=== PATIENT | male | born 1980 | race Caucasian/White ===

== ENCOUNTER 2018-02-17 14:35 | Emergency (ER) | payer OTHER ==
[~2018-02-17] VITALS: Ht 193 cm; Wt 97.5 kg
[2018-02-17] MEDS ORDERED: FLUORESCEIN SODIUM OPHTH 1 EA STRIP OP STA (14:58)
[2018-02-17] MEDS ORDERED: TETRAcaine 5 ML BOTTLE EACHEYE ONE (15:00)
[2018-02-17] MEDS ORDERED: TETRACAINE HCL/PF 0.5% UD 2 ML BOTTLE ONE (15:16)
[2018-02-17] MEDS ORDERED: FLUORESCEIN SODIUM OPHTH 1 EA STRIP ONE (15:16)
--- NOTE | 2018-02-17 15:17 | NUR ---
PT REC'D TO ER C/O LEFT EYE SWELLING . PT TOOK WEED COOKIE AND FELL CANT REMEMBER IF KO. SENT TO CT
--- NOTE | 2018-02-17 15:47 | NUR ---
PT BACK FROM CT VISION CK DONE TETRACAINE APPLIED TO LEFT EYE
--- NOTE | 2018-02-17 15:52 | NUR ---
RT EYE 20/20, LEFT EYE 20/25 OU 20/20
[2018-02-17] MEDS ORDERED: AMOX/CLAVULANATE 875 MG TABLET ONE (17:00)
[2018-02-17] MEDS ORDERED: AMOX/CLAVULANATE 875 MG TABLET PO ONE (17:00)
--- NOTE | 2018-02-17 17:07 | NUR ---
PT GIVEN MED AUGMENTIN PO PER MD
[2018-02-17 17:18] VITALS: BP 109/72
--- NOTE | 2018-02-17 17:18 | NUR ---
Patient discharged to home in stable condition. Written and verbal after care instructions given. Patient verbalizes understanding of instruction.
== END 2018-02-17 17:20 | disposition home or self-care (01) ==
LOC: ER 14:43
DX: S02.82XA Fracture of other specified skull and facial bones, left side, initial encounter for closed fracture (principal); R94.02 Abnormal brain scan; W18.09XA Striking against other object with subsequent fall, initial encounter; Y93.89 Activity, other specified; Y92.091 Bathroom in other non-institutional residence as the place of occurrence of the external cause; Y99.8 Other external cause status
CPT/HCPCS: 70450; 70480; 99284; A4606; Z7610